=== PATIENT | male | born 1990 | race Caucasian/White ===

== ENCOUNTER 2018-07-05 20:35 | Emergency (ER) | payer OTHER ==
[2018-07-05 20:56] VITALS: BP 125/79; PULSE 82; RESP 18; TEMP 98.8; O2SAT 100
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
== END 2018-07-05 22:10 | disposition home or self-care (01) ==
LOC: C.ER 20:35
DX: M62.830 Muscle spasm of back (principal); V49.9XXA Car occupant (driver) (passenger) injured in unspecified traffic accident, initial encounter